=== PATIENT | male | born 1985 | race Caucasian/White ===

== ENCOUNTER 2016-02-20 19:33 | Emergency (ER) | payer SELFPAY ==
[~2016-02-20] VITALS: Ht 170.2 cm; Wt 72.0 kg
[2016-02-20 19:36] VITALS: BP 122/69; PULSE 67; RESP 16; TEMP 97.9; O2SAT 99
[2016-02-20] MEDS ORDERED: BACL10TA PO (19:57)
[2016-02-20] MEDS ORDERED: IBUP800T23 PO (19:57)
[2016-02-20] MEDS ORDERED: KETOROLAC TROMETHAMINE 60 MG/2 ML (IM) VIAL IM ONE (20:00)
[2016-02-20] MEDS ORDERED: ORPHENADRINE INJ 60 MG/2 ML AMP IM ONE (20:00)
--- NOTE | 2016-02-20 20:01 | PD ---
HPI Chief Complaint: Back/ Neck Pain or Injury Time Seen by Provider: 19:48 Travel History International Travel<30 days: No Contact w/Intl Traveler<30days: No Traveled to known affect area: No History of Present Illness HPI This is a 30-year-old male with no significant past medical history presents for evaluation of lower back pain. She reports that prior to arrival he was lifting weight, specifically performing clean presses, when he twisted his lower back. Since then he has had a left-sided lower back pain that sometimes seems to shoot along the lateral left thigh. Pain is an aching pain that is worse with movement such as running. He tried running after lifting weights but the pain persisted which prompted evaluation. Denies abdominal pain, focal weakness, bowel or bladder incontinence, saddle anesthesia. He has never had this problem before. He has no other complaints at this time. [facility] Past Medical History Immunizations Current: Yes Tetanus Vaccination: < 5 Years Influenza Vaccination: Yes Social History Alcohol Use: No Tobacco Use: Yes Substance Use: No Allergies-Medications (Allergen,Severity, Reaction): Coded Allergies: Aspirin (Verified Allergy, Mild, HIVES, 02/20/16) Reported Meds & Prescriptions Reported Meds & Active Scripts Active No Active Prescriptions or Reported Medications Review of Systems Except as stated in HPI: all other systems reviewed are Neg Physical Exam Narrative GENERAL: Well-developed well-nourished male in no acute distress resting a hospital bed SKIN: Warm and dry. CARDIOVASCULAR: Regular rate and rhythm. No murmur appreciated. RESPIRATORY: No accessory muscle use. Clear to auscultation. Breath sounds equal bilaterally. GASTROINTESTINAL: Abdomen soft, non-tender, nondistended. Hepatic and splenic margins not palpable. MUSCULOSKELETAL: No obvious deformities. There is mild tenderness to palpation along the left lumbar paravertebral musculature. There is no bony tenderness to palpation. The patient maintains full range of motion of the lower extremities and the torso. Negative straight leg raise bilaterally. 5 out of 5 muscle strength dorsi and plantar flexion, leg flexion and extension, hip flexion bilaterally. NEUROLOGICAL: Awake and alert. No obvious cranial nerve deficits. Motor grossly within normal limits. Normal speech. Data Data Last Documented VS Vital Signs Date Time Temp Pulse Resp B/P Pulse Ox O2 Delivery O2 Flow Rate FiO2 02/20/16 19:46 16 02/20/16 19:36 97.9 67 122/69 99 Orders Ketorolac Inj (Toradol Inj) (02/20/16 20:00) Orphenadrine Inj (Norflex Inj) (02/20/16 20:00) MDM Medical Decision Making Medical Screen Exam Complete: Yes Emergency Medical Condition: Yes Medical Record Reviewed: Yes Differential Diagnosis Herniated nucleus pulposis, piriformis syndrome, muscle strain, muscle spasm, compression fracture, conus medullaris syndrome, cauda equina syndrome Narrative Course 30-year-old male presents with left lower back pain that seems to radiate down the lateral left thigh for the past hour after performing "clean presses" and twisting his back. On examination he has no weakness, no bony deformity or range of motion limitation. His symptoms are certainly suggestive of a lumbosacral radiculopathy. Plan is to treat him symptomatically with NSAIDs, muscle relaxants. He was an allergy to aspirin over he has taken ibuprofen in the past with no problem and therefore he'll be discharged with ibuprofen, baclofen. He does work in construction and he is encouraged to avoid any heavy lifting until cleared by his primary care physician after symptoms have resolved. He may benefit from outpatient physical therapy, MRI lumbar spine Excedrin if symptoms persist. Therefore he is encouraged to follow-up in one week with primary care physician. Diagnosis Primary Impression: Lumbosacral radiculopathy Departure Forms: Tests/Procedures, Work Release Enter return to work date: Feb 26, 2016 Additional Instructions: Medication as prescribed. Do not drive or drink alcohol when taking baclofen. Avoid heavy lifting or any activity that aggravates the pain. Continue to perform activities of daily living. Avoid bed rest. Follow-up with primary care physician next week for recheck. Return for any emergent medical conditions. Med/Other Pt SpecificInfo: Prescription(s) given Scripts Baclofen 10 Mg Tab10 Mg PO Q8HR PRN (MUSCLE SPASM) 7 Days Ref 0 Prov:Kelsie Shea DO 02/20/16 Ibuprofen 800 Mg Qku072 Mg PO Q6HR PRN (PAIN) #30 TAB Ref 0 Prov:SheaKelsie DO 02/20/16 Disposition: 01 DISCHARGE HOME Condition: Stable Aly Rondon Feb 20, 2016 20:01
== END 2016-02-20 20:12 | disposition home or self-care (01) ==
LOC: NEPB 19:33
DX: M54.17 Radiculopathy, lumbosacral region (principal)
CPT/HCPCS: 96372; 99283; J1885; J2360